=== PATIENT | female | born 1940 | race Caucasian/White ===

== ENCOUNTER 2016-11-17 18:30 | Emergency (ER) | payer OTHER, MEDICARE ==
--- NOTE | 2016-11-17 18:46 | CPEKG ---
Heart Rate: 82 RR Interval: 732 P-R Interval: 164 QRSD Interval: 76 QT Interval: 384 QTC Interval: 449 P [place]: 67 QRS [place]: -32 T Wave [place]: 55 EKG Severity - ABNORMAL ECG - EKG Impression: SINUS RHYTHM EKG Impression: LEFT AXIS DEVIATION EKG Impression: CONSIDER ANTEROSEPTAL INFARCT Electronically Signed By: Ramila Berkowitz 17-Nov-2016 19:26:17
[2016-11-17] MEDS ORDERED: ASPIRIN 81 MG CHEWABLE TAB PO ONE ×2 (18:49)
--- NOTE | 2016-11-17 19:24 | EDPHY ---
H & P Stated Complaint: Syncope at ~ 1300 . SOB . Visiting from [place]. Time Seen by Provider: 11/17/16 18:36 HPI/ROS: CHIEF COMPLAINT: Syncope History by patient HISTORY OF PRESENT ILLNESS: 76-year-old woman with a history of hypertension, diabetes and high cholesterol presents after syncopal episode earlier today. Patient states she when out the garage to pick something up and she bent over the next thing she knew she was seen black and her said she slowly collapsed down to the ground. She was out only briefly and then they got her back into the house and she felt better but every time she got up she still felt "lightheaded". This is not associated with any chest pain, shortness of breath or palpitations. Patient does knows she had some shortness of breath earlier when she was walking out to the car. She is here visiting from [place] and just arrived yesterday By airplane and she attributed this to the altitude. she had a syncope episode once before when she went to [place] which was also attributed to the office to. She has no prior cardiac history. She denies any leg swelling or pain. She takes a baby aspirin a day. She has never smoked. REVIEW OF SYSTEMS: As in HPI, and all other systems reviewed and are negative Source: Patient - Medical/Surgical History Hx Diabetes: Yes Hx Cardiac Disease: No Other PMH: DM HTN. CSEC 3. Breast CA Mastectomy. Ortho surgeries. - Family History Significant Family History: No pertinent family hx - Social History Smoking Status: Never smoked - Physical Exam Exam: General Appearance: Alert, Morbidly Obese, nontoxic-appearing. Eyes: Pupils equal and round no pallor or injection. ENT, Mouth: Mucous membranes moist. Respiratory: Normal, effort, lungs are clear to auscultation. No wheezes, rales or rhonchi. Cardiovascular: Regular rate and rhythm. S1, S2 Gastrointestinal: Abdomen is soft and nontender, no masses, bowel sounds normal. Back: No CVA tenderness, no bony tenderness Neurological: Awake, alert and oriented x 3, no pronator drift, normal gait, no pronator drift Skin: Warm and dry, no rashes. Musculoskeletal: Neck is supple nontender. No deformities. Extremitie:s full range of motion, 1+ pitting pretibial edema, DP pulses 2+ and equal bilaterally Psychiatric: Patient has normal affect, there is no agitation. Constitutional: Initial Vital Signs Temperature (C) 36.3 C 11/17/16 18:30 Heart Rate 80 11/17/16 18:30 Respiratory Rate 20 11/17/16 18:30 Blood Pressure 138/62 H 11/17/16 18:30 O2 Sat (%) 90 L 11/17/16 18:30 O2 Delivery Mode Nasal Cannula O2 (L/minute) 2 Allergies/Adverse Reactions: codeine Allergy (Verified 11/17/16 18:50) morphine Allergy (Verified 11/17/16 18:50) Sulfa (Sulfonamide Antibiotics) Allergy (Verified 11/17/16 18:50) Home Medications: Medication Instructions Recorded Actos 11/17/16 Effexor 11/17/16 GLIPIZIDE 11/17/16 Hydrochlorothiazide 11/17/16 Metformin HCl 11/17/16 Ramipril 11/17/16 Medical Decision Making - Diagnostics EKG Interpretation: normal sinus rhythm at a rate of 82 with left axis deviation and Q-waves in leads V1 and V2 with and nonspecific ST changes. There is no old EKG available for comparison. Imaging Results: Imaging Impressions Chest X-Ray 11/17/16 18:50 Impression: 1. Elevated right hemidiaphragm. 2. No definite pneumonia. 3. Consider CT chest with contrast imaging. Chest/Thorax CTA 11/17/16 20:01 Impression: 1. There is no CT evidence of pulmonary artery thromboemboli. 2. Elevated right hemidiaphragm with some adjacent compressive subsegmental atelectasis. 3. Moderate hiatal hernia. 4. Bilateral adrenal gland hyperplasia. 5. There is a simple-appearing 3.6 x 3.3 cm anterior mid pole right renal cortical cyst. Findings were discussed with Ramila Berkowitz MD at 20:44, on 11/17/2016. Imaging: Discussed imaging studies w/ emergency management director Radiologist ED Course/Re-evaluation: 76-year-old woman presents after syncopal episode and a episode of shortness of breath. ECG showed sinus rhythm with left axis deviation and Q-waves in the anterior leads with poor R-wave progression concerning for old infarct. No old EKGs were bills for comparison. There is no evidence of acute ischemia. Patient was given aspirin in the ED. Chest x-ray showed elevated right hemidiaphragm. Patient had an episode where her oxygen saturation dropped into the high 80s. A D-dimer was positive. I was therefore concerned about pulmonary embolism as the underlying cause of her signs and symptoms and a CT angiogram of the chest was obtained which was read as negative for PE by the lead front end developer. The rest of the patient's blood work was unremarkable except for a slightly elevated white blood cell count. Troponin was negative x 2. BNP was within normal limits. She remained in normal sinus rhythm on the monitor throughout her emergency department stay. Because of the patient's abnormal EKG and cardiac risk factors I wanted to keep her for observation and cardiac monitoring for her syncope however the patient declined admission. We discussed the risks of going home including but not limited to significant cardiac arrhythmia and/or . I discussed this with both the patient and her . Patient understands that the risk and she is still insisting on going home. We discussed return precautions including recurrent syncope, chest pain, difficulty breathing or other new problems or concerns. - Data Points Laboratory Results: Laboratory Results 11/17/16 18:30 11/17/16 18:30 11/17/16 11/17/16 11/17/16 21:10 18:30 18:30 WBC RBC Hgb Hct MCV MCH MCHC RDW Plt Count MPV Neut % (Auto) Lymph % (Auto) [place] % (Auto) Eos % (Auto) Baso % (Auto) Nucleat RBC Rel Count Absolute Neuts (auto) Absolute Lymphs (auto) Absolute Monos (auto) Absolute Eos (auto) Absolute Basos (auto) Absolute Nucleated RBC Immature Gran % Immature Gran # D-Dimer 0.58 ug/mLFEU H ug/mLFEU (0.00-0.50) Sodium 139 mEq/L mEq/L (134-144) Potassium 4.6 mEq/L mEq/L (3.5-5.2) Chloride 99 mEq/L mEq/L (97-110) Carbon Dioxide 27 mEq/l mEq/l (22-31) Anion Gap 13 mEq/L mEq/L (8-16) BUN 32 mg/dL H mg/dL (7-23) Creatinine 0.9 mg/dL mg/dL (0.6-1.0) Estimated GFR > 60 Glucose 78 mg/dL mg/dL (70-100) Calcium 9.3 mg/dL mg/dL (8.5-10.4) Troponin I < 0.012 ng/mL ng/mL < 0.012 ng/mL ng/mL (0-0.034) (0-0.034) NT-Pro-B Natriuret Pep 131 pg/mL pg/mL (0-450) 11/17/16 18:30 WBC 10.34 10^3/uL H 10^3/uL (3.80-9.50) RBC 4.43 10^6/uL 10^6/uL (4.18-5.33) Hgb 13.3 g/dL g/dL (12.6-16.3) Hct 40.0 % % (38.0-47.0) MCV 90.3 fL fL (81.5-99.8) MCH 30.0 pg pg (27.9-34.1) MCHC 33.3 g/dL g/dL (32.4-36.7) RDW 13.7 % % (11.5-15.2) Plt Count 274 10^3/uL 10^3/uL (150-400) MPV 9.1 fL fL (8.7-11.7) Neut % (Auto) 70.1 % % (39.3-74.2) Lymph % (Auto) 14.3 % L % (15.0-45.0) [place] % (Auto) 10.3 % % (4.5-13.0) Eos % (Auto) 4.8 % % (0.6-7.6) Baso % (Auto) 0.4 % % (0.3-1.7) Nucleat RBC Rel Count 0.0 % % (0.0-0.2) Absolute Neuts (auto) 7.24 10^3/uL H 10^3/uL (1.70-6.50) Absolute Lymphs (auto) 1.48 10^3/uL 10^3/uL (1.00-3.00) Absolute Monos (auto) 1.07 10^3/uL H 10^3/uL (0.30-0.80) Absolute Eos (auto) 0.50 10^3/uL H 10^3/uL (0.03-0.40) Absolute Basos (auto) 0.04 10^3/uL 10^3/uL (0.02-0.10) Absolute Nucleated RBC 0.00 10^3/uL 10^3/uL (0-0.01) Immature Gran % 0.1 % % (0.0-1.1) Immature Gran # 0.01 10^3/uL 10^3/uL (0.00-0.10) D-Dimer Sodium Potassium Chloride Carbon Dioxide Anion Gap BUN Creatinine Estimated GFR Glucose Calcium Troponin I NT-Pro-B Natriuret Pep Medications Given: Discontinued Medications Aspirin (Aspirin) 324 mg PO EDNOW ONE Stop: 11/17/16 18:50 Last Admin: 11/17/16 18:56 Dose: Not Given Aspirin (Aspirin) 243 mg PO EDNOW ONE Stop: 11/17/16 18:50 Last Admin: 11/17/16 18:54 Dose: 243 mg Departure - Departure Clinical Impression: Abnormal EKG Syncope Qualifiers: Syncope type: unspecified Qualified Code(s): R55 - Syncope and collapse Condition: Fair Instructions: Syncope (ED) Additional Instructions: You were seen by Dr. Ramila Berkowitz today. Please be seen by a lead front end developer as soon as you go home to [place] to follow up on your abnormal EKG. Return immediately to the emergency department for any recurrence of fainting, chest pain, difficulty breathing or other new concerns. Return for any worsening or new concerns. Referrals: NONE *PRIMARY CARE P,. [Primary Care Provider] - As per Instructions
[2016-11-17 19:38] LABS: % IMMATURE GRANULYOCYTES 0.1 % (0.0-1.1); ABSOLUTE IMMATURE GRANULOCYTES 0.01 10^3/uL (0.00-0.10); ADD DIFF? NO; ADD MORPH? NO; ADD SCAN? NO; ATYPICAL LYMPHOCYTE FLAG 10 (0-99); FRAGMENT RBC FLAG 0 (0-99); HEMOGLOBIN 13.3 g/dL (12.6-16.3); LEFT SHIFT FLG 0 (0-99); LIPEMIA HEMOLYSIS FLAG 80 (0-99); MEAN CELL HEMOGLOBIN CONCENTR. 33.3 g/dL (32.4-36.7); MEAN CELL VOLUME 90.3 fL (81.5-99.8); MEAN PLATELET VOLUME 9.1 fL (8.7-11.7); PLATELET CLUMPS FLAG 10 (0-99); PLATELET COUNT 274 10^3/uL (150-400); RED BLOOD CELL COUNT 4.43 10^6/uL (4.18-5.33); RED CELL DISTRIBUTION WIDTH 13.7 % (11.5-15.2)
[2016-11-17 19:50] LABS: ANION GAP 13 mEq/L (8-16); CALCIUM 9.3 mg/dL (8.5-10.4); CARBON DIOXIDE 27 mEq/l (22-31); CHLORIDE 99 mEq/L (97-110); CREATININE 0.9 mg/dL (0.6-1.0); GLOMERULAR FILTRATION RATE > 60; GLUCOSE 78 mg/dL (70-100); POTASSIUM 4.6 mEq/L (3.5-5.2); SODIUM 139 mEq/L (134-144)
[2016-11-17 20:02] LABS: TROPONIN I < 0.012 ng/mL (0-0.034)
[2016-11-17] MEDS ORDERED: IOPAMIDOL (ISOVUE 370) 100 ML BTL IV ONE (20:06)
[2016-11-17 21:33] VITALS: RESP 20
[2016-11-17 21:45] VITALS: BP 122/75; PULSE 82; TEMP 98.1; O2SAT 91
== END 2016-11-17 21:52 | disposition home or self-care (01) ==
LOC: CED 18:30
DX: R55 Syncope and collapse (principal); R94.31 Abnormal electrocardiogram [ECG] [EKG]; E11.9 Type 2 diabetes mellitus without complications; I10 Essential (primary) hypertension; Z79.84 Long term (current) use of oral hypoglycemic drugs
CPT/HCPCS: 71020; 71275; 93005; 99285; Q9967; 80048-PO; 83880-PO; 84484-PO; 85025-PO; 85378-PO